=== PATIENT | male | born 1955 ===

== ENCOUNTER 2021-04-18 20:46 | Inpatient (IN) | payer MEDICARE, OTHER ==
[~2021-04-18] VITALS: Ht 190.5 cm; Wt 82.3 kg
[2021-04-18 21:34] LABS: GLUCOMETER DEV NAME(LOC) ERT.5; GLUCOSE,POINT OF CARE 92 MG/DL (70-110)
[2021-04-18] MEDS ORDERED: 0.9% SODIUM CHLORIDE 10 ML SYRINGE IVP PRN (22:15)
[2021-04-18] MEDS ORDERED: SODIUM CHLORIDE 0.9% 2,300 ML IV ONE (22:15)
[2021-04-18] MEDS ORDERED: VANCOMYCIN HCL 1.5 GM in DEXTROSE 5%-WATER 250 ML IV ONE (22:30)
[2021-04-18] MEDS ORDERED: PIPERACILLIN/TAZO 3.375 GM/D5W 50 ML IV ONE (22:30)
[2021-04-18 23:15] LABS: BASOPHILS % (AUTO) 0.9 % (0.0-2.0); EOSINOPHILS % (AUTO) 0.1 % (1.0-6.0); HEMATOCRIT 26.7 % (41-53); HEMOGLOBIN 7.7 g/dL (13.5-17.5); LYMPHOCYTES # (AUTO) 1.4 K/uL (1.0-4.8); LYMPHOCYTES % (AUTO) 7.6 % (22.0-44.0); MEAN CORPUSCULAR HEMOGLOBIN 19.8 pg (26.0-34.0); MEAN CORPUSCULAR HGB CONC 28.8 G/dL (31.0-37.0); MEAN CORPUSCULAR VOLUME 69 fL (80-100); MONOCYTES % (AUTO) 5.6 % (2.0-9.0); NEUTROPHILS # (AUTO) 15.7 K/uL (1.8-7.7); PLATELET COUNT (AUTO) 277 K/uL (150-450); RED BLOOD CELL COUNT(AUTO) 3.89 MIL/uL (4.50-5.90); RED CELL DISTRIBUTION WIDTH 23.8 % (11.5-14.5)
[2021-04-18] MEDS ORDERED: AMIODARONE HCL 150 MG in DEXTROSE 5%-WATER 97 ML IV ONE (23:15)
[2021-04-18] MEDS ORDERED: AMIODARONE HCL 360 MG in DEXTROSE 5%-WATER 242.8 ML IV ONE (23:15)
[2021-04-18 23:22] LABS: INR 1.5 (0.9-1.1); PROTHROMBIN TIME 15.1 SEC (9.4-11.6)
[2021-04-18] MEDS ORDERED: SODIUM CHLORIDE 0.9% 100 ML ONE (23:24)
[2021-04-18] MEDS ORDERED: AMIODARONE HCL 50 MG/ML 3 ML VIAL ONE (23:24)
[2021-04-18 23:27] LABS: NEUTROPHILS % (AUTO) 85.8 % (40.0-70.0)
[2021-04-18 23:29] LABS: ALANINE AMINOTRANSFERASE 13 U/L (12-78); ALBUMIN 1.7 g/dL (3.4-5.0); ALKALINE PHOSPHATASE 150 U/L (46-116); ANION GAP 12 mmol/L (8-16); ASPARTATE AMINOTRANSFERASE 21 U/L (15-37); BILIRUBIN,TOTAL 0.9 mg/dL (0.1-1.0); CALCIUM, TOTAL 9.1 mg/dL (8.8-10.5); CARBON DIOXIDE 24 mmol/L (22-29); CHLORIDE 106 mmol/L (98-107); CREATINE KINASE, TOTAL ONLY 17 U/L (39-308); CREATININE 1.92 mg/dL (0.60-1.30); GLOMERULAR FILTR. RATE CALC 35 mL/min (>60); GLUCOSE,RANDOM 113 mg/dL (70-110); SODIUM SERUM 142 mmol/L (136-145); TOTAL PROTEIN, SERUM 9.8 g/dL (6.4-8.2); UREA NITROGEN, BLOOD 40 mg/dL (7-18)
[2021-04-18 23:33] LABS: COVID AG,FIA SOURCE NASOPHARYNGEAL
[2021-04-18 23:46] LABS: B-TYPE NATRIURETIC PEPTIDE 701 pg/mL (0-100)
[2021-04-18 23:51] LABS: LACTIC ACID 2.5 mmol/L (0.4-2.0)
[2021-04-18 23:52] LABS: POTASSIUM 2.8 mmol/L (3.5-5.1)
[2021-04-19] VITALS (10 sets, daily range): BP systolic 104–131; BP diastolic 50–70
[2021-04-19] MEDS ORDERED: POTASSIUM CHLORIDE 20 MEQ ER TABLET PO PRN
[2021-04-19 00:01] LABS: INFLUENZA TYPE A NEGATIVE FOR TYPE A (NEGATIVE); INFLUENZA TYPE B NEGATIVE FOR TYPE B (NEGATIVE)
[2021-04-19] MEDS: POTASSIUM CHL 10 MEQ/WATER 50 ML IV PRN ×4 (00:07→06:43)
[2021-04-19] MEDS ORDERED: ACETAMINOPHEN 325 MG TABLET PO PRN ×3 (00:15→13:30)
[2021-04-19] MEDS ORDERED: ONDANSETRON HCL 4 MG/2 ML VIAL IVP PRN ×2 (00:15→02:30)
[2021-04-19] MEDS ORDERED: SODIUM CHLORIDE 0.9% 1,000 ML IV ONE (01:15)
[2021-04-19] MEDS: SODIUM CHLORIDE 0.9% 1,000 ML IV SCH ×2 (03:00→17:15)
[2021-04-19 03:20] LABS: % IRON SATURATION 18.9 % (30-44)
[2021-04-19] MEDS: AZITHROMYCIN 500 MG/NS 250 ML IV SCH (03:58)
[2021-04-19] MEDS ORDERED: AMIODARONE HCL 540 MG in DEXTROSE 5%-WATER 239.2 ML IV ONE (05:15)
[2021-04-19] MEDS: CefTRIAXone 1 GM/DEXTROSE 50 ML IV SCH (06:24)
[2021-04-19 06:40] LABS: CALCIUM, TOTAL 8.1 mg/dL (8.8-10.5); CREATININE 1.65 mg/dL (0.60-1.30); POTASSIUM 3.6 mmol/L (3.5-5.1)
[2021-04-19 06:45] LABS: ALBUMIN 1.3 g/dL (3.4-5.0); TOTAL PROTEIN, SERUM 7.9 g/dL (6.4-8.2)
[2021-04-19 07:44] LABS: BASOPHILS % (AUTO) 0.4 % (0.0-2.0); EOSINOPHILS % (AUTO) 0.1 % (1.0-6.0); HEMATOCRIT 22.2 % (41-53); LYMPHOCYTES # (AUTO) 1.2 K/uL (1.0-4.8); LYMPHOCYTES % (AUTO) 5.3 % (22.0-44.0); MEAN CORPUSCULAR HEMOGLOBIN 19.9 pg (26.0-34.0); MEAN CORPUSCULAR HGB CONC 28.6 G/dL (31.0-37.0); MEAN CORPUSCULAR VOLUME 70 fL (80-100); MONOCYTES # (AUTO) 1.1 K/uL (0.1-1.0); MONOCYTES % (AUTO) 5.1 % (2.0-9.0); NEUTROPHILS # (AUTO) 19.5 K/uL (1.8-7.7); PLATELET COUNT (AUTO) 185 K/uL (150-450); RED BLOOD CELL COUNT(AUTO) 3.18 MIL/uL (4.50-5.90); RED CELL DISTRIBUTION WIDTH 22.9 % (11.5-14.5)
[2021-04-19 07:50] LABS: HEMOGLOBIN 6.3 g/dL (13.5-17.5); NEUTROPHILS % (AUTO) 89.1 % (40.0-70.0)
[2021-04-19] MEDS ORDERED: HEPARIN SODIUM,PORCINE 5,000 UNITS/ML VIAL SQ SCH (08:00)
[2021-04-19 08:41] LABS: APPEARANCE,URINE TURBID (CLEAR); BILIRUBIN,URINE NEGATIVE (NEGATIVE); GLUCOSE, URINE (UA) NEGATIVE (NEGATIVE); KETONES,URINE NEGATIVE (NEGATIVE); LEUKOCYTE ESTERASE ,URINE NEGATIVE (NEGATIVE); NITRATE,URINE NEGATIVE (NEGATIVE); OCCULT BLOOD,URINE TRACE (NEGATIVE); PH,URINE 5.5 (5.0-8.0); PROTEIN,URINE TRACE (NEGATIVE)
[2021-04-19 08:56] LABS: BACTERIA,URINE None Seen /HPF (None Seen); RBC,URINE None Seen /HPF (0-2); SQUAMOUS EPITHELIAL CELL,UR Few /LPF (None Seen); URIC ACID CRYSTALS,URINE Few /LPF (None Seen); WBC,URINE None Seen /HPF (0-5)
[2021-04-19] MEDS: PANTOPRAZOLE SODIUM 40 MG/VIAL IVP SCH ×2 (10:21→22:46)
[2021-04-19] MEDS ORDERED: SODIUM BICARBONATE [ADULT] 8.4% 50 MEQ/50 ML SYRINGE IVP ONE (12:00)
[2021-04-19] MEDS ORDERED: CALCIUM CHLORIDE 100 MG/ML 10 ML SYRINGE IVP ONE (12:00)
[2021-04-19] MEDS ORDERED: AMIODARONE HCL 50 MG/ML 3 ML VIAL IVP ONE (12:00)
[2021-04-19] MEDS ORDERED: INFLUENZA VIRUS VACCINE QVS 2021-22 (6MO+)/PF 60 MCG/0.5 ML SYRINGE IM. ONE (15:45)
[2021-04-19 22:21] LABS: HEMATOCRIT 22.5 % (41-53)
[2021-04-19 22:27] LABS: HEMOGLOBIN 6.7 g/dL (13.5-17.5)
[2021-04-19] MEDS ORDERED: AMIODARONE HCL 750 MG in DEXTROSE 5%-WATER 485 ML IV SCH (23:30)
[2021-04-20] VITALS (14 sets, daily range): BP systolic 95–132; BP diastolic 48–83
[2021-04-20 00:24] LABS: HEMATOCRIT 21.7 % (41-53)
[2021-04-20 00:40] LABS: HEMOGLOBIN 6.4 g/dL (13.5-17.5)
[2021-04-20] MEDS: AZITHROMYCIN 500 MG/NS 250 ML IV SCH (04:58)
[2021-04-20] MEDS: CefTRIAXone 1 GM/DEXTROSE 50 ML IV SCH (06:07)
[2021-04-20 07:57] LABS: HEMATOCRIT 26.3 % (41-53); HEMOGLOBIN 7.8 g/dL (13.5-17.5)
[2021-04-20] MEDS: METOPROLOL TARTRATE 25 MG TABLET PO SCH ×2 (09:00→21:43)
[2021-04-20] MEDS: PANTOPRAZOLE SODIUM 40 MG/VIAL IVP SCH ×2 (09:20→21:39)
[2021-04-20] MEDS: MORPHINE SULFATE 2 MG/ML SYRINGE IVP PRN (09:28)
[2021-04-20 15:35] LABS: HEMATOCRIT 27.2 % (41-53)
[2021-04-20] MEDS: SODIUM CHLORIDE 0.9% 1,000 ML IV SCH ×2 (21:24→21:39)
[2021-04-21] VITALS (7 sets, daily range): BP systolic 110–127; BP diastolic 64–89
[2021-04-21 00:29] LABS: HEMATOCRIT 26.2 % (41-53); HEMOGLOBIN 7.7 g/dL (13.5-17.5)
[2021-04-21] MEDS: AZITHROMYCIN 500 MG/NS 250 ML IV SCH (05:38)
[2021-04-21] MEDS: CefTRIAXone 1 GM/DEXTROSE 50 ML IV SCH (07:23)
[2021-04-21 08:24] LABS: BASOPHILS % (AUTO) 0.2 % (0.0-2.0); EOSINOPHILS % (AUTO) 0.2 % (1.0-6.0); HEMATOCRIT 27.4 % (41-53); HEMOGLOBIN 8.3 g/dL (13.5-17.5); LYMPHOCYTES # (AUTO) 0.6 K/uL (1.0-4.8); LYMPHOCYTES % (AUTO) 3.9 % (22.0-44.0); MEAN CORPUSCULAR HEMOGLOBIN 22.1 pg (26.0-34.0); MEAN CORPUSCULAR HGB CONC 30.4 G/dL (31.0-37.0); MEAN CORPUSCULAR VOLUME 73 fL (80-100); MONOCYTES # (AUTO) 0.4 K/uL (0.1-1.0); MONOCYTES % (AUTO) 2.8 % (2.0-9.0); NEUTROPHILS # (AUTO) 13.5 K/uL (1.8-7.7); NEUTROPHILS % (AUTO) 92.9 % (40.0-70.0); PLATELET COUNT (AUTO) 125 K/uL (150-450); RED BLOOD CELL COUNT(AUTO) 3.77 MIL/uL (4.50-5.90); RED CELL DISTRIBUTION WIDTH 26.7 % (11.5-14.5)
[2021-04-21 08:38] LABS: ALBUMIN 1.2 g/dL (3.4-5.0); BILIRUBIN,TOTAL 0.8 mg/dL (0.1-1.0); CALCIUM, TOTAL 8.3 mg/dL (8.8-10.5); CREATININE 1.22 mg/dL (0.60-1.30); MAGNESIUM 1.9 mg/dL (1.80-2.40); TOTAL PROTEIN, SERUM 7.4 g/dL (6.4-8.2)
[2021-04-21 08:42] LABS: POTASSIUM 2.8 mmol/L (3.5-5.1)
[2021-04-21] MEDS: PANTOPRAZOLE SODIUM 40 MG/VIAL IVP SCH ×2 (09:08→21:56)
[2021-04-21] MEDS: ATORVASTATIN CALCIUM 10 MG TABLET PO SCH (09:09)
[2021-04-21] MEDS: METOPROLOL TARTRATE 25 MG TABLET PO SCH ×2 (09:09→21:00)
[2021-04-21] MEDS ORDERED: POTASSIUM CHLORIDE 20 MEQ ER TABLET PO PRN (10:45)
[2021-04-21] MEDS: MULTIVITAMINS WITH MINERALS, THERAPEUTIC TABLET PO SCH (10:45)
[2021-04-21] MEDS: DOCUSATE SODIUM 100 MG CAPSULE PO SCH ×2 (10:45→21:00)
[2021-04-21] MEDS: POTASSIUM CHL 10 MEQ/WATER 50 ML IV PRN ×6 (11:16→23:05)
[2021-04-21 16:19] LABS: ABG A-A DIFF O2 625.9 mmHg (10-20.0); ABG BASE EXCESS -3.9 mmol/L (-2.0-3.0); ABG CARBOXYHEMOGLOBIN 1.4 % (0.0-1.5); ABG HCO3 21.6 mmol/L (22.0-26.0); ABG METHEMOGLOBIN 0.3 % (0.0-1.5); ABG OXYGEN CONTENT 11.7 mL/dL (15.0-23.0); ABG OXYGEN SATURATION 88.5 % (95.0-98.0); ABG PCO2 30 mmHg (35-45); ABG PH 7.447 (7.35-7.450); ABG TOTAL HEMOGLOBIN 9.5 G/dL (12.0-18.0); O2 DEVICE,BLOOD GAS NON REBREATHER (ROOM AIR); PO2, ARTERIAL BG 57.3 mmHg (79.0-87.0); SITE, BLOOD GAS LFT BRACHIAL; SOURCE, BLOOD GAS ARTERIAL; TEMPERATURE, FAHRENHEIT, BG 98.6 FAHREN (96.0-98.6)
[2021-04-21 16:57] LABS: HEMATOCRIT 28.8 % (41-53); HEMOGLOBIN 8.6 g/dL (13.5-17.5)
[2021-04-21] MEDS: MethylPREDNISolone SOD SUCC 125 MG/2 ML VIAL IVP SCH (18:07)
[2021-04-21] MEDS: SODIUM CHLORIDE 0.9% 1,000 ML IV SCH (18:16)
[2021-04-21] MEDS: SOD FERRIC GLUC COMPLX/SUCROSE 125 MG in SODIUM CHLORIDE 0.9% 100 ML IV SCH (19:00)
[2021-04-21] MEDS: MORPHINE SULFATE 2 MG/ML SYRINGE IVP PRN (22:17)
[2021-04-22] MEDS: MethylPREDNISolone SOD SUCC 125 MG/2 ML VIAL IVP SCH ×5 (00:13→23:17)
[2021-04-22] MEDS: POTASSIUM CHL 10 MEQ/WATER 50 ML IV PRN (00:15)
[2021-04-22] MEDS: SODIUM CHLORIDE 0.9% 1,000 ML IV SCH ×2 (01:04→17:13)
[2021-04-22 02:12] LABS: HEMATOCRIT 29.4 % (41-53); HEMOGLOBIN 8.6 g/dL (13.5-17.5)
[2021-04-22 04:10] VITALS: BP 123/85
[2021-04-22] MEDS: AZITHROMYCIN 500 MG/NS 250 ML IV SCH (04:14)
[2021-04-22] MEDS: CefTRIAXone 1 GM/DEXTROSE 50 ML IV SCH (05:31)
[2021-04-22 06:46] LABS: BASOPHILS % (AUTO) 0.2 % (0.0-2.0); EOSINOPHILS % (AUTO) 0 % (1.0-6.0); HEMATOCRIT 28.5 % (41-53); HEMOGLOBIN 8.4 g/dL (13.5-17.5); LYMPHOCYTES # (AUTO) 0.4 K/uL (1.0-4.8); LYMPHOCYTES % (AUTO) 2.5 % (22.0-44.0); MEAN CORPUSCULAR HEMOGLOBIN 22.2 pg (26.0-34.0); MEAN CORPUSCULAR HGB CONC 29.4 G/dL (31.0-37.0); MEAN CORPUSCULAR VOLUME 75 fL (80-100); MONOCYTES # (AUTO) 0.1 K/uL (0.1-1.0); MONOCYTES % (AUTO) 0.9 % (2.0-9.0); NEUTROPHILS # (AUTO) 14.7 K/uL (1.8-7.7); PLATELET COUNT (AUTO) 153 K/uL (150-450); RED BLOOD CELL COUNT(AUTO) 3.78 MIL/uL (4.50-5.90); RED CELL DISTRIBUTION WIDTH 27.6 % (11.5-14.5)
[2021-04-22 06:50] LABS: ALANINE AMINOTRANSFERASE 13 U/L (12-78); ALBUMIN 1.3 g/dL (3.4-5.0); ALKALINE PHOSPHATASE 161 U/L (46-116); ANION GAP 10 mmol/L (8-16); ASPARTATE AMINOTRANSFERASE 27 U/L (15-37); BILIRUBIN,TOTAL 0.6 mg/dL (0.1-1.0); CALCIUM, TOTAL 8.9 mg/dL (8.8-10.5); CARBON DIOXIDE 20 mmol/L (22-29); CHLORIDE 117 mmol/L (98-107); CREATININE 1.17 mg/dL (0.60-1.30); GLOMERULAR FILTR. RATE CALC > 60 mL/min (>60); GLUCOSE,RANDOM 103 mg/dL (70-110); POTASSIUM 3.5 mmol/L (3.5-5.1); SODIUM SERUM 147 mmol/L (136-145); TOTAL PROTEIN, SERUM 7.7 g/dL (6.4-8.2); UREA NITROGEN, BLOOD 21 mg/dL (7-18)
[2021-04-22 06:54] LABS: NEUTROPHILS % (AUTO) 96.4 % (40.0-70.0)
[2021-04-22 08:15] VITALS: BP 119/81
[2021-04-22] MEDS: DOCUSATE SODIUM 100 MG CAPSULE PO SCH ×2 (09:00→21:00)
[2021-04-22] MEDS: METOPROLOL TARTRATE 25 MG TABLET PO SCH ×2 (09:00→21:00)
[2021-04-22] MEDS: MULTIVITAMINS WITH MINERALS, THERAPEUTIC TABLET PO SCH (09:00)
[2021-04-22] MEDS: ATORVASTATIN CALCIUM 10 MG TABLET PO SCH (09:00)
[2021-04-22] MEDS ORDERED: FentaNYL CITRATE PF 100 MCG/2 ML VIAL ONE (09:12)
[2021-04-22] MEDS ORDERED: FLUMAZENIL 0.1 MG/ML 5 ML VIAL IVP ONE (09:12)
[2021-04-22] MEDS ORDERED: NALOXONE HCL 0.4 MG/ML VIAL ONE (09:12)
[2021-04-22] MEDS ORDERED: MIDAZOLAM HCL 2 MG/2 ML VIAL ONE (09:12)
[2021-04-22] MEDS ORDERED: FentaNYL CITRATE PF 100 MCG/2 ML VIAL IVP ONE ×2 (10:00→10:20)
[2021-04-22] MEDS ORDERED: MIDAZOLAM HCL 2 MG/2 ML VIAL IVP ONE (10:10)
[2021-04-22 11:36] VITALS: BP 120/63
[2021-04-22] MEDS: PANTOPRAZOLE SODIUM 40 MG/VIAL IVP SCH ×2 (12:08→19:59)
[2021-04-22] MEDS: SOD FERRIC GLUC COMPLX/SUCROSE 125 MG in SODIUM CHLORIDE 0.9% 100 ML IV SCH (12:08)
[2021-04-22 13:18] LABS: HEMATOCRIT 30.3 % (41-53); HEMOGLOBIN 8.8 g/dL (13.5-17.5)
[2021-04-22 16:06] VITALS: BP 121/77
[2021-04-22 20:06] VITALS: BP 122/76
[2021-04-22 21:25] LABS: HEMATOCRIT 31.9 % (41-53); HEMOGLOBIN 9.3 g/dL (13.5-17.5)
[2021-04-22] MEDS: MORPHINE SULFATE 2 MG/ML SYRINGE IVP PRN (23:27)
[2021-04-23 00:20] VITALS: BP 126/74
[2021-04-23 04:15] VITALS: BP 116/93
[2021-04-23] MEDS: AZITHROMYCIN 500 MG/NS 250 ML IV SCH (04:16)
[2021-04-23] MEDS: MethylPREDNISolone SOD SUCC 125 MG/2 ML VIAL IVP SCH ×4 (05:47→23:06)
[2021-04-23] MEDS: CefTRIAXone 1 GM/DEXTROSE 50 ML IV SCH (05:48)
[2021-04-23] MEDS: SODIUM CHLORIDE 0.9% 1,000 ML IV SCH (05:49)
[2021-04-23 07:19] LABS: BASOPHILS % (AUTO) 0.1 % (0.0-2.0); EOSINOPHILS % (AUTO) 0 % (1.0-6.0); HEMATOCRIT 26.8 % (41-53); HEMOGLOBIN 7.9 g/dL (13.5-17.5); LYMPHOCYTES # (AUTO) 0.5 K/uL (1.0-4.8); LYMPHOCYTES % (AUTO) 2.2 % (22.0-44.0); MEAN CORPUSCULAR HEMOGLOBIN 22.2 pg (26.0-34.0); MEAN CORPUSCULAR HGB CONC 29.6 G/dL (31.0-37.0); MEAN CORPUSCULAR VOLUME 75 fL (80-100); MONOCYTES # (AUTO) 0.3 K/uL (0.1-1.0); MONOCYTES % (AUTO) 1.3 % (2.0-9.0); NEUTROPHILS # (AUTO) 21.5 K/uL (1.8-7.7); PLATELET COUNT (AUTO) 155 K/uL (150-450); RED BLOOD CELL COUNT(AUTO) 3.57 MIL/uL (4.50-5.90); RED CELL DISTRIBUTION WIDTH 26.9 % (11.5-14.5)
[2021-04-23 07:20] VITALS: BP 131/71
[2021-04-23 07:25] LABS: NEUTROPHILS % (AUTO) 96.4 % (40.0-70.0)
[2021-04-23 07:32] LABS: ALANINE AMINOTRANSFERASE 10 U/L (12-78); ALBUMIN 1.2 g/dL (3.4-5.0); ALKALINE PHOSPHATASE 130 U/L (46-116); ANION GAP 9 mmol/L (8-16); ASPARTATE AMINOTRANSFERASE 23 U/L (15-37); BILIRUBIN,TOTAL 0.3 mg/dL (0.1-1.0); CALCIUM, TOTAL 8.9 mg/dL (8.8-10.5); CARBON DIOXIDE 20 mmol/L (22-29); CHLORIDE 119 mmol/L (98-107); CREATININE 1.09 mg/dL (0.60-1.30); GLOMERULAR FILTR. RATE CALC > 60 mL/min (>60); GLUCOSE,RANDOM 132 mg/dL (70-110); POTASSIUM 3.4 mmol/L (3.5-5.1); SODIUM SERUM 148 mmol/L (136-145); TOTAL PROTEIN, SERUM 6.9 g/dL (6.4-8.2); UREA NITROGEN, BLOOD 29 mg/dL (7-18)
[2021-04-23] MEDS: ATORVASTATIN CALCIUM 10 MG TABLET PO SCH (09:00)
[2021-04-23] MEDS: MULTIVITAMINS WITH MINERALS, THERAPEUTIC TABLET PO SCH (09:00)
[2021-04-23] MEDS: DOCUSATE SODIUM 100 MG CAPSULE PO SCH ×2 (09:00→21:00)
[2021-04-23] MEDS: METOPROLOL TARTRATE 25 MG TABLET PO SCH ×2 (09:00→21:00)
[2021-04-23] MEDS: PANTOPRAZOLE SODIUM 40 MG/VIAL IVP SCH ×2 (09:08→23:06)
[2021-04-23] MEDS: POTASSIUM CHL 10 MEQ/WATER 50 ML IV PRN ×3 (10:26→17:10)
[2021-04-23] MEDS ORDERED: SODIUM CHLORIDE 0.9% 250 ML IV ONE (10:29)
[2021-04-23 11:04] VITALS: BP 122/76
[2021-04-23] MEDS: SOD FERRIC GLUC COMPLX/SUCROSE 125 MG in SODIUM CHLORIDE 0.9% 100 ML IV SCH (14:26)
[2021-04-23 15:07] VITALS: BP 124/72
[2021-04-23 15:23] LABS: HEMATOCRIT 28.8 % (41-53); HEMOGLOBIN 8.4 g/dL (13.5-17.5)
[2021-04-23] MEDS: LORazepam 2 MG/ML VIAL IVP PRN (18:34)
[2021-04-23 19:47] VITALS: BP 128/80
[2021-04-23 23:57] LABS: HEMATOCRIT 26.4 % (41-53); HEMOGLOBIN 7.8 g/dL (13.5-17.5)
[2021-04-24 00:02] VITALS: BP 134/97
[2021-04-24] MEDS: LORazepam 2 MG/ML VIAL IVP PRN ×2 (00:08→06:21)
[2021-04-24 04:41] VITALS: BP 120/62
[2021-04-24] MEDS: CefTRIAXone 1 GM/DEXTROSE 50 ML IV SCH (05:34)
[2021-04-24] MEDS: AZITHROMYCIN 500 MG/NS 250 ML IV SCH (05:35)
[2021-04-24 06:06] LABS: BASOPHILS % (AUTO) 0.1 % (0.0-2.0); EOSINOPHILS % (AUTO) 0 % (1.0-6.0); HEMATOCRIT 27.8 % (41-53); LYMPHOCYTES # (AUTO) 0.5 K/uL (1.0-4.8); LYMPHOCYTES % (AUTO) 2.6 % (22.0-44.0); MEAN CORPUSCULAR HEMOGLOBIN 22.2 pg (26.0-34.0); MEAN CORPUSCULAR HGB CONC 28.8 G/dL (31.0-37.0); MEAN CORPUSCULAR VOLUME 77 fL (80-100); MONOCYTES # (AUTO) 0.3 K/uL (0.1-1.0); MONOCYTES % (AUTO) 1.3 % (2.0-9.0); NEUTROPHILS # (AUTO) 18.8 K/uL (1.8-7.7); PLATELET COUNT (AUTO) 150 K/uL (150-450); RED CELL DISTRIBUTION WIDTH 28.3 % (11.5-14.5)
[2021-04-24] MEDS: MethylPREDNISolone SOD SUCC 125 MG/2 ML VIAL IVP SCH ×4 (06:21→23:11)
[2021-04-24 06:53] LABS: ALANINE AMINOTRANSFERASE 13 U/L (12-78); ALBUMIN 1.4 g/dL (3.4-5.0); ALKALINE PHOSPHATASE 144 U/L (46-116); ANION GAP 11 mmol/L (8-16); ASPARTATE AMINOTRANSFERASE 23 U/L (15-37); BILIRUBIN,TOTAL 0.3 mg/dL (0.1-1.0); CALCIUM, TOTAL 9.4 mg/dL (8.8-10.5); CARBON DIOXIDE 21 mmol/L (22-29); CHLORIDE 120 mmol/L (98-107); GLOMERULAR FILTR. RATE CALC > 60 mL/min (>60); GLUCOSE,RANDOM 114 mg/dL (70-110); PHOSPHORUS 3.7 mg/dL (2.5-4.9); POTASSIUM 3.9 mmol/L (3.5-5.1); SODIUM SERUM 152 mmol/L (136-145); TOTAL PROTEIN, SERUM 7.4 g/dL (6.4-8.2); UREA NITROGEN, BLOOD 33 mg/dL (7-18)
[2021-04-24 08:09] VITALS: BP 129/90
[2021-04-24] MEDS: MULTIVITAMINS WITH MINERALS, THERAPEUTIC 15 ML UDCUP NG SCH (09:16)
[2021-04-24] MEDS: DOCUSATE SODIUM 100 MG CAPSULE PO SCH ×2 (09:16→21:00)
[2021-04-24] MEDS: ATORVASTATIN CALCIUM 10 MG TABLET PO SCH (09:17)
[2021-04-24] MEDS: METOPROLOL TARTRATE 25 MG TABLET PO SCH ×2 (09:17→22:41)
[2021-04-24] MEDS: PANTOPRAZOLE SODIUM 40 MG/VIAL IVP SCH ×2 (09:17→21:00)
[2021-04-24] MEDS: THIAMINE 100 MG/ML 2 ML VIAL IVP SCH (09:18)
[2021-04-24 11:23] VITALS: BP 135/70
[2021-04-24] MEDS: SOD FERRIC GLUC COMPLX/SUCROSE 125 MG in SODIUM CHLORIDE 0.9% 100 ML IV SCH (11:23)
[2021-04-24 12:32] LABS: HEMATOCRIT 28.7 % (41-53); HEMOGLOBIN 8.3 g/dL (13.5-17.5)
[2021-04-24] MEDS ORDERED: DEXTROSE 5%-WATER 1,000 ML IV ONE (14:30)
[2021-04-24 16:36] VITALS: BP 130/80
[2021-04-24 19:55] VITALS: BP 119/75
[2021-04-24 21:15] LABS: HEMATOCRIT 26.3 % (41-53); HEMOGLOBIN 7.7 g/dL (13.5-17.5)
[2021-04-25] VITALS (7 sets, daily range): BP systolic 131–143; BP diastolic 58–82
[2021-04-25] MEDS: MethylPREDNISolone SOD SUCC 125 MG/2 ML VIAL IVP SCH ×3 (05:19→23:57)
[2021-04-25] MEDS: AZITHROMYCIN 500 MG/NS 250 ML IV SCH (05:22)
[2021-04-25] MEDS: CefTRIAXone 1 GM/DEXTROSE 50 ML IV SCH (05:22)
[2021-04-25 07:27] LABS: ALANINE AMINOTRANSFERASE 18 U/L (12-78); ALBUMIN 1.4 g/dL (3.4-5.0); ALKALINE PHOSPHATASE 163 U/L (46-116); ANION GAP 13 mmol/L (8-16); ASPARTATE AMINOTRANSFERASE 37 U/L (15-37); BILIRUBIN,TOTAL 0.3 mg/dL (0.1-1.0); CALCIUM, TOTAL 9.3 mg/dL (8.8-10.5); CARBON DIOXIDE 20 mmol/L (22-29); CHLORIDE 118 mmol/L (98-107); CREATININE 1.09 mg/dL (0.60-1.30); GLOMERULAR FILTR. RATE CALC > 60 mL/min (>60); GLUCOSE,RANDOM 111 mg/dL (70-110); POTASSIUM 3.6 mmol/L (3.5-5.1); SODIUM SERUM 151 mmol/L (136-145); TOTAL PROTEIN, SERUM 7.6 g/dL (6.4-8.2); UREA NITROGEN, BLOOD 33 mg/dL (7-18)
[2021-04-25] MEDS: MULTIVITAMINS WITH MINERALS, THERAPEUTIC 15 ML UDCUP NG SCH (08:41)
[2021-04-25] MEDS: PANTOPRAZOLE SODIUM 40 MG/VIAL IVP SCH ×2 (08:41→21:33)
[2021-04-25] MEDS: DOCUSATE SODIUM 100 MG CAPSULE PO SCH ×2 (08:41→21:00)
[2021-04-25] MEDS: THIAMINE 100 MG/ML 2 ML VIAL IVP SCH (08:41)
[2021-04-25] MEDS: METOPROLOL TARTRATE 25 MG TABLET PO SCH ×2 (08:41→21:33)
[2021-04-25] MEDS: ATORVASTATIN CALCIUM 10 MG TABLET PO SCH (08:41)
[2021-04-25 08:51] LABS: BASOPHILS % (AUTO) 0.2 % (0.0-2.0); EOSINOPHILS % (AUTO) 0 % (1.0-6.0); HEMATOCRIT 28.4 % (41-53); HEMOGLOBIN 8.3 g/dL (13.5-17.5); LYMPHOCYTES # (AUTO) 0.4 K/uL (1.0-4.8); LYMPHOCYTES % (AUTO) 2.3 % (22.0-44.0); MEAN CORPUSCULAR HEMOGLOBIN 22.3 pg (26.0-34.0); MEAN CORPUSCULAR HGB CONC 29.2 G/dL (31.0-37.0); MEAN CORPUSCULAR VOLUME 76 fL (80-100); MONOCYTES # (AUTO) 0.3 K/uL (0.1-1.0); MONOCYTES % (AUTO) 1.7 % (2.0-9.0); NEUTROPHILS # (AUTO) 15.9 K/uL (1.8-7.7); PLATELET COUNT (AUTO) 103 K/uL (150-450); RED BLOOD CELL COUNT(AUTO) 3.72 MIL/uL (4.50-5.90); RED CELL DISTRIBUTION WIDTH 28.1 % (11.5-14.5)
[2021-04-25 08:53] LABS: NEUTROPHILS % (AUTO) 95.8 % (40.0-70.0)
[2021-04-25] MEDS ORDERED: DEXTROSE 5%-WATER 1,000 ML IV ONE (10:15)
[2021-04-25] MEDS: SOD FERRIC GLUC COMPLX/SUCROSE 125 MG in SODIUM CHLORIDE 0.9% 100 ML IV SCH (17:19)
[2021-04-25] MEDS: MORPHINE SULFATE 2 MG/ML SYRINGE IVP PRN (21:50)
[2021-04-26 00:08] LABS: GLUCOMETER DEV NAME(LOC) 5N.1C; GLUCOSE,POINT OF CARE 105 MG/DL (70-110)
[2021-04-26 05:40] VITALS: BP 101/55
[2021-04-26] MEDS: AZITHROMYCIN 500 MG/NS 250 ML IV SCH (05:43)
[2021-04-26] MEDS: MethylPREDNISolone SOD SUCC 125 MG/2 ML VIAL IVP SCH ×3 (06:35→18:01)
[2021-04-26] MEDS: CefTRIAXone 1 GM/DEXTROSE 50 ML IV SCH (06:35)
[2021-04-26 06:52] LABS: BASOPHILS % (AUTO) 0.6 % (0.0-2.0); EOSINOPHILS % (AUTO) 0 % (1.0-6.0); HEMATOCRIT 29.4 % (41-53); HEMOGLOBIN 8.7 g/dL (13.5-17.5); LYMPHOCYTES # (AUTO) 0.4 K/uL (1.0-4.8); LYMPHOCYTES % (AUTO) 2.6 % (22.0-44.0); MEAN CORPUSCULAR HEMOGLOBIN 22.4 pg (26.0-34.0); MEAN CORPUSCULAR HGB CONC 29.5 G/dL (31.0-37.0); MEAN CORPUSCULAR VOLUME 76 fL (80-100); MONOCYTES # (AUTO) 0.3 K/uL (0.1-1.0); MONOCYTES % (AUTO) 2.2 % (2.0-9.0); PLATELET COUNT (AUTO) 87 K/uL (150-450); RED BLOOD CELL COUNT(AUTO) 3.87 MIL/uL (4.50-5.90); RED CELL DISTRIBUTION WIDTH 28.2 % (11.5-14.5)
[2021-04-26 06:53] LABS: NEUTROPHILS % (AUTO) 94.6 % (40.0-70.0)
[2021-04-26 07:00] LABS: ANION GAP 8 mmol/L (8-16); CALCIUM, TOTAL 8.9 mg/dL (8.8-10.5); CARBON DIOXIDE 24 mmol/L (22-29); CHLORIDE 116 mmol/L (98-107); CREATININE 0.87 mg/dL (0.60-1.30); GLOMERULAR FILTR. RATE CALC > 60 mL/min (>60); GLUCOSE,RANDOM 118 mg/dL (70-110); POTASSIUM 3.2 mmol/L (3.5-5.1); SODIUM SERUM 148 mmol/L (136-145); UREA NITROGEN, BLOOD 27 mg/dL (7-18)
[2021-04-26 07:31] VITALS: BP 126/73
[2021-04-26 08:00] LABS: GLUCOMETER DEV NAME(LOC) 5S.1; GLUCOSE,POINT OF CARE 121 MG/DL (70-110)
[2021-04-26] MEDS: ATORVASTATIN CALCIUM 10 MG TABLET PO SCH (08:20)
[2021-04-26] MEDS: THIAMINE 100 MG/ML 2 ML VIAL IVP SCH (08:20)
[2021-04-26] MEDS: PANTOPRAZOLE SODIUM 40 MG/VIAL IVP SCH ×2 (08:20→20:01)
[2021-04-26] MEDS: MULTIVITAMINS WITH MINERALS, THERAPEUTIC 15 ML UDCUP NG SCH (08:22)
[2021-04-26] MEDS: METOPROLOL TARTRATE 25 MG TABLET PO SCH ×2 (08:22→20:01)
[2021-04-26] MEDS: DOCUSATE SODIUM 100 MG CAPSULE PO SCH ×2 (08:22→19:54)
[2021-04-26] MEDS: SOD FERRIC GLUC COMPLX/SUCROSE 125 MG in SODIUM CHLORIDE 0.9% 100 ML IV SCH (11:26)
[2021-04-26 11:50] VITALS: BP 119/58
[2021-04-26] MEDS: POTASSIUM CHL 10 MEQ/WATER 50 ML IV SCH ×4 (15:07→20:01)
[2021-04-26 15:49] VITALS: BP 133/66
[2021-04-26 17:29] LABS: GLUCOMETER DEV NAME(LOC) 5N.1C; GLUCOSE,POINT OF CARE 113 MG/DL (70-110)
[2021-04-26 18:18] LABS: GLUCOMETER DEV NAME(LOC) 5S.1; GLUCOSE,POINT OF CARE 127 MG/DL (70-110)
[2021-04-26 20:22] VITALS: BP 121/65
[2021-04-27] VITALS (7 sets, daily range): BP systolic 115–147; BP diastolic 62–80
[2021-04-27] MEDS: MethylPREDNISolone SOD SUCC 125 MG/2 ML VIAL IVP SCH ×4 (00:17→18:03)
[2021-04-27 00:18] LABS: GLUCOMETER DEV NAME(LOC) 5S.1; GLUCOSE,POINT OF CARE 123 MG/DL (70-110)
[2021-04-27] MEDS: AZITHROMYCIN 500 MG/NS 250 ML IV SCH (04:52)
[2021-04-27 05:55] LABS: GLUCOMETER DEV NAME(LOC) 5N.1C; GLUCOSE,POINT OF CARE 115 MG/DL (70-110)
[2021-04-27] MEDS: CefTRIAXone 1 GM/DEXTROSE 50 ML IV SCH (06:03)
[2021-04-27 06:17] LABS: BASOPHILS % (AUTO) 1.3 % (0.0-2.0); EOSINOPHILS % (AUTO) 0 % (1.0-6.0); HEMATOCRIT 26.2 % (41-53); HEMOGLOBIN 7.7 g/dL (13.5-17.5); LYMPHOCYTES # (AUTO) 0.4 K/uL (1.0-4.8); LYMPHOCYTES % (AUTO) 2.1 % (22.0-44.0); MEAN CORPUSCULAR HEMOGLOBIN 22.5 pg (26.0-34.0); MEAN CORPUSCULAR HGB CONC 29.5 G/dL (31.0-37.0); MEAN CORPUSCULAR VOLUME 76 fL (80-100); MONOCYTES # (AUTO) 0.3 K/uL (0.1-1.0); MONOCYTES % (AUTO) 1.6 % (2.0-9.0); NEUTROPHILS # (AUTO) 15.6 K/uL (1.8-7.7); PLATELET COUNT (AUTO) 81 K/uL (150-450); RED BLOOD CELL COUNT(AUTO) 3.45 MIL/uL (4.50-5.90); RED CELL DISTRIBUTION WIDTH 28.2 % (11.5-14.5)
[2021-04-27 06:28] LABS: ANION GAP 4 mmol/L (8-16); CALCIUM, TOTAL 8.6 mg/dL (8.8-10.5); CARBON DIOXIDE 24 mmol/L (22-29); CHLORIDE 114 mmol/L (98-107); CREATININE 0.75 mg/dL (0.60-1.30); GLOMERULAR FILTR. RATE CALC > 60 mL/min (>60); GLUCOSE,RANDOM 127 mg/dL (70-110); POTASSIUM 3.5 mmol/L (3.5-5.1); SODIUM SERUM 142 mmol/L (136-145); UREA NITROGEN, BLOOD 24 mg/dL (7-18)
[2021-04-27] MEDS: POTASSIUM CHL 10 MEQ/WATER 50 ML IV PRN (06:55)
[2021-04-27] MEDS: METOPROLOL TARTRATE 25 MG TABLET PO SCH ×2 (08:53→20:42)
[2021-04-27] MEDS: PANTOPRAZOLE SODIUM 40 MG/VIAL IVP SCH ×2 (08:53→20:42)
[2021-04-27] MEDS: THIAMINE 100 MG/ML 2 ML VIAL IVP SCH (08:53)
[2021-04-27] MEDS: ATORVASTATIN CALCIUM 10 MG TABLET PO SCH (08:53)
[2021-04-27] MEDS: MULTIVITAMINS WITH MINERALS, THERAPEUTIC 15 ML UDCUP NG SCH (08:53)
[2021-04-27] MEDS: DOCUSATE SODIUM 100 MG CAPSULE PO SCH ×2 (08:54→20:42)
[2021-04-27] MEDS: MORPHINE SULFATE 2 MG/ML SYRINGE IVP PRN ×2 (10:20→14:39)
[2021-04-27] MEDS: SOD FERRIC GLUC COMPLX/SUCROSE 125 MG in SODIUM CHLORIDE 0.9% 100 ML IV SCH (11:17)
[2021-04-27 14:54] LABS: GLUCOMETER DEV NAME(LOC) 5S.1; GLUCOSE,POINT OF CARE 128 MG/DL (70-110)
[2021-04-27] MEDS ORDERED: POTASSIUM CHLORIDE 10% 40 MEQ/30 ML LIQUID UDCUP NG ONE (15:30)
[2021-04-27 18:18] LABS: GLUCOMETER DEV NAME(LOC) 5S.1; GLUCOSE,POINT OF CARE 115 MG/DL (70-110)
[2021-04-28] MEDS: MethylPREDNISolone SOD SUCC 125 MG/2 ML VIAL IVP SCH ×4 (00:46→17:59)
[2021-04-28] MEDS: MORPHINE SULFATE 2 MG/ML SYRINGE IVP PRN ×2 (00:51→10:29)
[2021-04-28] MEDS: AZITHROMYCIN 500 MG/NS 250 ML IV SCH (04:35)
[2021-04-28] MEDS ORDERED: SODIUM CHLORIDE 0.9% 250 ML IV ONE (04:40)
[2021-04-28 05:15] VITALS: BP 141/70
[2021-04-28] MEDS ORDERED: SODIUM CL IRRIG SOLN BOTTLE 250 ML IRRIG ONE (05:25)
[2021-04-28] MEDS: CefTRIAXone 1 GM/DEXTROSE 50 ML IV SCH (06:04)
[2021-04-28 06:58] LABS: BASOPHILS % (AUTO) 0.5 % (0.0-2.0); EOSINOPHILS % (AUTO) 0 % (1.0-6.0); HEMATOCRIT 27.5 % (41-53); HEMOGLOBIN 8.3 g/dL (13.5-17.5); LYMPHOCYTES # (AUTO) 0.3 K/uL (1.0-4.8); LYMPHOCYTES % (AUTO) 1.7 % (22.0-44.0); MEAN CORPUSCULAR HEMOGLOBIN 23.1 pg (26.0-34.0); MEAN CORPUSCULAR HGB CONC 30.4 G/dL (31.0-37.0); MEAN CORPUSCULAR VOLUME 76 fL (80-100); MONOCYTES # (AUTO) 0.5 K/uL (0.1-1.0); MONOCYTES % (AUTO) 2.3 % (2.0-9.0); NEUTROPHILS # (AUTO) 18.7 K/uL (1.8-7.7); PLATELET COUNT (AUTO) 81 K/uL (150-450); RED CELL DISTRIBUTION WIDTH 29.2 % (11.5-14.5)
[2021-04-28 07:04] LABS: NEUTROPHILS % (AUTO) 95.5 % (40.0-70.0)
[2021-04-28 07:19] LABS: ANION GAP 5 mmol/L (8-16); CALCIUM, TOTAL 8.7 mg/dL (8.8-10.5); CARBON DIOXIDE 25 mmol/L (22-29); CHLORIDE 112 mmol/L (98-107); CREATININE 0.66 mg/dL (0.60-1.30); GLOMERULAR FILTR. RATE CALC > 60 mL/min (>60); GLUCOSE,RANDOM 144 mg/dL (70-110); PHOSPHORUS 2.2 mg/dL (2.5-4.9); POTASSIUM 3.3 mmol/L (3.5-5.1); SODIUM SERUM 142 mmol/L (136-145); UREA NITROGEN, BLOOD 24 mg/dL (7-18)
[2021-04-28 08:02] VITALS: BP 139/82
[2021-04-28 08:35] LABS: GLUCOMETER DEV NAME(LOC) 5N.1C; GLUCOSE,POINT OF CARE 139 MG/DL (70-110)
[2021-04-28] MEDS: METOPROLOL TARTRATE 25 MG TABLET PO SCH ×2 (10:03→21:41)
[2021-04-28] MEDS: MULTIVITAMINS WITH MINERALS, THERAPEUTIC 15 ML UDCUP NG SCH (10:03)
[2021-04-28] MEDS: ATORVASTATIN CALCIUM 10 MG TABLET PO SCH (10:03)
[2021-04-28] MEDS: DOCUSATE SODIUM 100 MG CAPSULE PO SCH (10:03)
[2021-04-28] MEDS: PANTOPRAZOLE SODIUM 40 MG/VIAL IVP SCH ×2 (10:04→21:41)
[2021-04-28] MEDS: THIAMINE 100 MG/ML 2 ML VIAL IVP SCH (10:05)
[2021-04-28] MEDS ORDERED: POTASSIUM CHLORIDE 10% 40 MEQ/30 ML LIQUID UDCUP ONE (10:10)
[2021-04-28] MEDS ORDERED: POTASSIUM CHLORIDE 10% 40 MEQ/30 ML LIQUID UDCUP PO PRN (10:45)
[2021-04-28] MEDS: POTASSIUM CHLORIDE 10% 40 MEQ/30 ML LIQUID UDCUP NG PRN (10:55)
[2021-04-28] MEDS: SOD FERRIC GLUC COMPLX/SUCROSE 125 MG in SODIUM CHLORIDE 0.9% 100 ML IV SCH (11:02)
[2021-04-28 12:04] VITALS: BP 137/83
[2021-04-28] MEDS: SODIUM,POTASSIUM PHOSPHATES POWDER PACKET PO SCH ×2 (15:12→21:41)
[2021-04-28 16:04] VITALS: BP 140/68
[2021-04-28 20:38] VITALS: BP 140/73
[2021-04-28] MEDS: DOCUSATE SODIUM 100 MG/10 ML LIQUID UDCUP NG SCH (21:41)
[2021-04-28] MEDS: LORazepam 2 MG/ML VIAL IVP PRN (22:30)
[2021-04-29] MEDS: MethylPREDNISolone SOD SUCC 125 MG/2 ML VIAL IVP SCH ×4 (00:09→17:59)
[2021-04-29 00:45] VITALS: BP 134/83
[2021-04-29 03:28] LABS: GLUCOMETER DEV NAME(LOC) 5S.1; GLUCOSE,POINT OF CARE 116 MG/DL (70-110)
[2021-04-29 04:43] VITALS: BP 121/70
[2021-04-29] MEDS: AZITHROMYCIN 500 MG/NS 250 ML IV SCH (04:48)
[2021-04-29] MEDS: CefTRIAXone 1 GM/DEXTROSE 50 ML IV SCH (04:48)
[2021-04-29] MEDS ORDERED: SODIUM CHLORIDE 0.9% 250 ML IV ONE (06:05)
[2021-04-29 06:17] LABS: ANION GAP 5 mmol/L (8-16); CALCIUM, TOTAL 8.7 mg/dL (8.8-10.5); CARBON DIOXIDE 24 mmol/L (22-29); CHLORIDE 112 mmol/L (98-107); CREATININE 0.59 mg/dL (0.60-1.30); GLOMERULAR FILTR. RATE CALC > 60 mL/min (>60); GLUCOSE,RANDOM 111 mg/dL (70-110); PHOSPHORUS 2.5 mg/dL (2.5-4.9); POTASSIUM 3.4 mmol/L (3.5-5.1); SODIUM SERUM 141 mmol/L (136-145); UREA NITROGEN, BLOOD 22 mg/dL (7-18)
[2021-04-29 08:42] VITALS: BP 135/93
[2021-04-29] MEDS: DOCUSATE SODIUM 100 MG/10 ML LIQUID UDCUP NG SCH ×2 (10:18→20:45)
[2021-04-29] MEDS: METOPROLOL TARTRATE 25 MG TABLET PO SCH ×2 (10:18→20:46)
[2021-04-29] MEDS: POTASSIUM CHLORIDE 10% 40 MEQ/30 ML LIQUID UDCUP NG PRN (10:18)
[2021-04-29] MEDS: MULTIVITAMINS WITH MINERALS, THERAPEUTIC 15 ML UDCUP NG SCH (10:18)
[2021-04-29] MEDS: ATORVASTATIN CALCIUM 10 MG TABLET PO SCH (10:18)
[2021-04-29] MEDS: THIAMINE 100 MG/ML 2 ML VIAL IVP SCH (10:19)
[2021-04-29] MEDS: PANTOPRAZOLE SODIUM 40 MG/VIAL IVP SCH ×2 (10:19→20:45)
[2021-04-29] MEDS: SOD FERRIC GLUC COMPLX/SUCROSE 125 MG in SODIUM CHLORIDE 0.9% 100 ML IV SCH (10:42)
[2021-04-29 12:06] VITALS: BP 136/89
[2021-04-29 16:00] VITALS: BP 131/88
[2021-04-29 19:26] VITALS: BP 131/82
[2021-04-30] VITALS (7 sets, daily range): BP systolic 125–153; BP diastolic 74–94
[2021-04-30] MEDS: MethylPREDNISolone SOD SUCC 125 MG/2 ML VIAL IVP SCH ×5 (00:12→23:22)
[2021-04-30] MEDS: MORPHINE SULFATE 2 MG/ML SYRINGE IVP PRN ×5 (00:25→22:16)
[2021-04-30] MEDS ORDERED: SCOPOLAMINE HYDROBROMIDE 1 MG/72 HOUR PATCH TD SCH (09:00)
[2021-04-30] MEDS: DOCUSATE SODIUM 100 MG/10 ML LIQUID UDCUP NG SCH ×2 (09:21→20:34)
[2021-04-30 10:11] LABS: COVID AG,FIA SOURCE NASAL SWAB
[2021-04-30] MEDS ORDERED: DOCU100C33 PO (14:22)
[2021-04-30] MEDS ORDERED: SCOP1PAT12 TD (14:23)
[2021-04-30] MEDS ORDERED: ACET-784 PO (14:24)
[2021-05-01 00:07] LABS: GLUCOMETER DEV NAME(LOC) 5S.2B; GLUCOSE,POINT OF CARE 131 MG/DL (70-110)
[2021-05-01 03:30] VITALS: BP 129/85
[2021-05-01] MEDS: MethylPREDNISolone SOD SUCC 125 MG/2 ML VIAL IVP SCH (05:26)
[2021-05-01] MEDS: DOCUSATE SODIUM 100 MG/10 ML LIQUID UDCUP NG SCH (07:29)
[2021-05-01 07:36] LABS: GLUCOMETER DEV NAME(LOC) 5S.1; GLUCOSE,POINT OF CARE 159 MG/DL (70-110)
[2021-05-01 07:40] VITALS: BP 136/89
[2021-05-01 08:46] LABS: ANION GAP 4 mmol/L (8-16); CALCIUM, TOTAL 8.6 mg/dL (8.8-10.5); CARBON DIOXIDE 25 mmol/L (22-29); CHLORIDE 109 mmol/L (98-107); CREATININE 0.55 mg/dL (0.60-1.30); GLOMERULAR FILTR. RATE CALC > 60 mL/min (>60); GLUCOSE,RANDOM 161 mg/dL (70-110); POTASSIUM 3.6 mmol/L (3.5-5.1); SODIUM SERUM 138 mmol/L (136-145); UREA NITROGEN, BLOOD 27 mg/dL (7-18)
[2021-05-01] MEDS: MORPHINE SULFATE 2 MG/ML SYRINGE IVP PRN (09:36)
== END 2021-05-01 11:15 | disposition hospice, home (50) | DRG 853 ==
LOC: EMS 20:51 → 5N 04-19 11:43 → 5S 04-22 14:57
PROVIDERS: ADMIT Internal Medicine; ATTEND Internal Medicine
PROC: 30233N1 Transfusion of Nonautologous Red Blood Cells into Peripheral Vein, Percutaneous Approach (ICD-10-PCS; 2021-04-19)
PROC: 0WBC3ZX Excision of Mediastinum, Percutaneous Approach, Diagnostic (ICD-10-PCS; principal; 2021-04-22)
DX: A41.9 Sepsis, unspecified organism (principal); E43 Unspecified severe protein-calorie malnutrition; G93.41 Metabolic encephalopathy; J98.59 Other diseases of mediastinum, not elsewhere classified; J18.9 Pneumonia, unspecified organism; N17.9 Acute kidney failure, unspecified; I47.1 Supraventricular tachycardia; E87.0 Hyperosmolality and hypernatremia; E87.2 Acidosis; J44.0 Chronic obstructive pulmonary disease with (acute) lower respiratory infection; L02.91 Cutaneous abscess, unspecified; D64.9 Anemia, unspecified; E86.0 Dehydration; H54.8 Legal blindness, as defined in USA; I25.10 Atherosclerotic heart disease of native coronary artery without angina pectoris; M10.9 Gout, unspecified; K76.9 Liver disease, unspecified; N18.9 Chronic kidney disease, unspecified; R32 Unspecified urinary incontinence; E87.6 Hypokalemia; D63.8 Anemia in other chronic diseases classified elsewhere; E78.5 Hyperlipidemia, unspecified; E83.39 Other disorders of phosphorus metabolism; E87.8 Other disorders of electrolyte and fluid balance, not elsewhere classified; K74.60 Unspecified cirrhosis of liver; Z20.822 Contact with and (suspected) exposure to COVID-19; R13.10 Dysphagia, unspecified; Z87.891 Personal history of nicotine dependence; Z51.5 Encounter for palliative care; Z68.22 Body mass index [BMI] 22.0-22.9, adult
CPT/HCPCS: 32408; 36245; 36569; 71045; 71250; 74018; 74230; 76937; 80048; 80053; 81001; 82140; 82271; 82550; 82805; 82962; 83540; 83550; 83605; 83735; 83880; 84100; 84132; 84484; 85014; 85018; 85025; 85045; 85610; 86850; 86900; 86901; 86920; 86923; 87040; 87081; 87804; 88307; 88312; 88321; 88341; 88342; 92507; 92526; 92610; 92611; 93005; 93306; 94799; 97161; 97162; 97530; 99291; C9113; J0282; J0456; J0696; J2060; J2250; J2270; J2310; J2543; J2916; J2930; J3010; J3370; J3411; J3480; J3490; J7030; J7050; J7060; P9016; 36415-L1; 36415-TC; U0003